=== PATIENT | female | born 1970 | race African-American/Black ===

== ENCOUNTER 2018-09-26 07:49 | Emergency (ER) | payer OTHER ==
[2018-09-26] MEDS ORDERED: IBUPROFEN 200 MG TAB PO ONE (08:33)
[2018-09-26] MEDS ORDERED: IBUPROFEN 400 MG TAB ONE (08:33)
[2018-09-26] MEDS ORDERED: NA CHLORIDE 0.9% 1,000 ML ONE (08:33)
[2018-09-26 09:11] LABS: Protime INR 1.16
[2018-09-26 09:12] LABS: Absolute Lymphocytes (CBC) 0.6 K/uL (0.7-4.9); Absolute Monocytes 0.8 K/uL (0.1-1.3); Absolute Neutrophil 4.5 K/uL (1.8-8.0); Basophils % 0.3 % (0-1.3); Eosinophils % 0.4 % (0-4.4); Hematocrit 34.6 % (36.0-45.0); Lymphocytes % 10.3 % (15.3-44.8); Monocytes % 13.7 % (3.3-12.3); RBC Red Blood Cell Count 5.25 M/uL (3.86-4.86)
[2018-09-26 09:34] LABS: ALT/SGPT 18 U/L (12-78); AST/SGOT 11 U/L (15-37); Albumin 3.8 g/dL (3.4-5.0); Alkaline Phosphatase 65 U/L (45-117); BUN Blood Urea Nitrogen 12 mg/dL (7-18); Bicarbonate 27 mmol/L (21-32); Bilirubin Direct 0.1 mg/dL (0-0.2); Bilirubin Total 0.4 mg/dL (0.2-1.0); Glucose Level 108 mg/dL (74-106); Magnesium 1.6 mg/dL (1.8-2.4); NT PRO-BNP 207 pg/mL (<125); Potassium 3.5 mmol/L (3.5-5.1); Protein, Total 7.7 g/dL (6.4-8.2); Sodium Level 141 mmol/L (136-145); Troponin (Emerg Dept Use Only) < 0.02 ng/mL (0.0-0.045)
[2018-09-26] MEDS ORDERED: MORPHINE 4 MG/ML SYR ONE (09:39)
[2018-09-26 09:49] LABS: Platelet Estimate ADEQ; Urine White Blood Cell Casts OK
[2018-09-26 09:50] LABS: Blood Morphology Comment NOTED (NOT SEEN); Hypochromasia 1+
[2018-09-26] MEDS ORDERED: MAGNESIUM OXIDE 400 MG TAB ONE (10:20)
[2018-09-26] MEDS ORDERED: CEFTRIAXONE/SWI 1gm 1 GM/10 ML SYR ONE (10:36)
--- NOTE | 2018-09-26 10:43 | RAD REPORT ---
EXAM DESCRIPTION: CT - Chest For Pe Angio - 09/26/2018 10:21 am CLINICAL HISTORY: Chest pain. Congestion;Dyspnea;Fever;Malaise COMPARISON: No comparisonsNo comparisons TECHNIQUE: CT angiogram of the pulmonary arteries was performed with MIP. All CT scans are performed using dose optimization technique as appropriate and may include automated exposure control or mA/KV adjustment according to patient size. FINDINGS: No evidence of pulmonary thromboembolism. No acute aortic finding demonstrated. The lungs are clear. No significant pericardial or pleural fluid. No concerning bony finding. IMPRESSION: No evidence of pulmonary thromboembolism. No acute lung findings.
[2018-09-26] MEDS ORDERED: LEVALBUTEROL 1.25 MG/3 ML NEB ONE (10:46)
--- NOTE | 2018-09-26 11:06 | RAD REPORT ---
EXAM DESCRIPTION: RAD - Chest Pa And Lat (2 Views) - 09/26/2018 8:30 am CLINICAL HISTORY: DYSPNEA Chest pain. COMPARISON: Chest For Pe Angio dated 09/26/2018 FINDINGS: Mild nonspecific interstitial prominence. The heart is normal in size. No displaced fractu res. IMPRESSION: Mild nonspecific interstitial prominence could indicate a pneumonitis/bronchitis.
--- NOTE | 2018-09-26 12:08 | ER ---
Nurse's Notes [facility] Name: Mini Rodriguez Age: 48 yrs Sex: Female : 1970 Arrival Date: 09/26/2018 Time: 07:53 Bed 19 Private MD: Lg Rodriguez B Diagnosis: Bronchitis, not specified as acute or chronic;Acute pharyngitis, unspecified;Shortness of breath Presentation: 09/26 08:07 Presenting complaint: Patient states: c/o fever, headache, chills, and achy since em Thursday, woke up today with SOB and cough with sputum, denies chest pain. Transition of care: patient was not received from another setting of care. Onset of symptoms was September 24, 2018. Risk Assessment: Do you want to hurt yourself or someone else? Patient reports no desire to harm self or others. Initial Sepsis Screen: Does the patient meet any 2 criteria? HR > 90 bpm. No. Patient's initial sepsis screen is negative. Does the patient have a suspected source of infection? No. Patient's initial sepsis screen is negative. Care prior to arrival: None. 08:07 Method Of Arrival: Ambulatory em 08:16 Acuity: MATT 3 iw Triage Assessment: 08:11 Headache History: Denies prior headaches. General: Appears uncomfortable, Behavior is em calm, cooperative, Reports chills for fever for. Pain: Complains of pain in forehead Pain currently is 8 out of 10 on a pain scale. Pain began 2-3 days ago. Also complains of nausea, photophobia. Neuro: Level of Consciousness is awake, alert, obeys commands, Oriented to person, place, time, situation, Moves all extremities. Gait is steady, Speech is normal, Facial symmetry appears normal, Reports headache photophobia. 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 - Social history:: Smoking status: Patient/guardian denies using tobacco. - Ebola Screening: : Patient negative for fever greater than or equal to 101.5 degrees Fahrenheit, and additional compatible Ebola Virus Disease symptoms Patient denies exposure to infectious person Patient denies travel to an Ebola-affected area in the 21 days before illness onset No symptoms or risks identified at this time. Screenin:16 Abuse screen: Denies threats or abuse. Nutritional screening: No deficits noted. em Tuberculosis screening: No symptoms or risk factors identified. Fall Risk None identified. Assessment: 08:16 General: Appears in no apparent distress. uncomfortable, Behavior is calm, cooperative, em Reports chills for fever for 2-3 days. Pain: Complains of pain in forehead. Neuro: Level of Consciousness is awake, alert, obeys commands, Oriented to person, place, time, situation, Reports headache photophobia weakness achy all over. Cardiovascular: Denies chest pain, Patient's skin is warm and dry. Rhythm is sinus rhythm. Respiratory: Reports shortness of breath at rest cough that is productive, Airway is patent Respiratory effort is even, unlabored, Respiratory pattern is regular, symmetrical, Onset: The symptoms/episode began/occurred this morning. GI: Patient currently denies nausea. Derm: Skin is intact, Skin is. Musculoskeletal: Range of motion: intact in all extremities. 08:20 Reassessment: Patient appears in no apparent distress at this time. I agree with above iw assessment by Inderjit Solorzano LVN. 09:00 Reassessment: Patient appears in no apparent distress at this time. Patient and/or em family updated on plan of care and expected duration. Pain level reassessed. Patient is alert, oriented x 3, equal unlabored respirations, skin warm/dry/pink. 10:00 Reassessment: Patient appears in no apparent distress at this time. Patient and/or em family updated on plan of care and expected duration. Pain level reassessed. Patient is alert, oriented x 3, equal unlabored respirations, skin warm/dry/pink. rates pain 5/10 Patient states feeling better. 11:08 Reassessment: Patient appears in no apparent distress at this time. Patient and/or em family updated on plan of care and expected duration. Pain level reassessed. Patient is alert, oriented x 3, equal unlabored respirations, skin warm/dry/pink. rates pain 3/10 Patient states feeling better. 12:00 Reassessment: Patient appears in no apparent distress at this time. Patient and/or em family updated on plan of care and expected duration. Pain level reassessed. Patient is alert, oriented x 3, equal unlabored respirations, skin warm/dry/pink. pending discharge, SOB has improved Patient states feeling better. Patient states symptoms have improved. Vital Signs: 08:11 BP 152 / 101; Pulse 97; Resp 22; Temp 102.6(O); Pulse Ox 97% on R/A; Weight 108.86 kg; em Height 5 ft. 3 in. (160.02 cm); Pain 8/10; 08:51 BP 142 / 108; Pulse 97; Resp 21; Pulse Ox 100% on R/A; em 09:21 BP 139 / 86; Pulse 94; Resp 20; Pulse Ox 97% ; em 09:54 BP 123 / 68; Pulse 87; Resp 20; Temp 100.3(O); Pulse Ox 99% on R/A; Pain 5/10; em 11:00 BP 110 / 69; Pulse 84; Resp 20; Pulse Ox 97% on R/A; em 12:00 BP 104 / 70; Pulse 72; Resp 18; Pulse Ox 97% on R/A; Pain 2/10; em 08:11 Body Mass Index 42.51 (108.86 kg, 160.02 cm) em ED Course: 07:53 Patient arrived in ED. mr 07:53 Lg Rodriguez MD is Private Physician. mr 07:56 [facility]qu[facility] Medina, [facility] rh1 07:56 Harsh Piedra MD is Attending Physician. rh1 07:57 Inderjit Solorzano LVN is Primary Nurse. em 08:14 Arm band placed on. em 08:15 Patient has correct armband on for positive identification. Placed in gown. Bed in low em position. Call light in reach. Side rails up X2. Adult w/ patient. quality assurance monitor body on. Pulse ox on. NIBP on. 08:16 Triage completed. iw 08:27 Chest Pa And Lat (2 Views) XRAY In Process Unspecified. EDMS 08:29 EKG done, by ED staff, reviewed by Harsh Piedra MD. mh5 08:50 Urine collected: clean catch specimen, clear, Flu and/or RSV swab sent to lab. Strep mh5 swab sent to lab. 08:51 Strep Sent. mh5 08:52 Flu Sent. mh5 10:21 CT completed. Patient tolerated procedure well. Patient moved back from CT. mw3 10:22 CT Chest For PE Angio In Process Unspecified. EDMS 12:06 Lg Rodriguez MD is Referral Physician. rh1 12:06 Victor Manuel Good MD is Referral Physician. rh1 12:06 Kasi Amaro MD is Referral Physician. rh1 12:22 No provider procedures requiring assistance completed. IV discontinued, intact, em bleeding controlled, No redness/swelling at site. Pressure dressing applied. Administered Medications: 08:40 Drug: Motrin 600 mg Route: PO; em 10:12 Follow up: Response: No adverse reaction; Temperature is decreased em 08:48 Drug: NS 0.9% 1000 ml Route: IV; Rate: 1 bolus; Site: right antecubital; em 10:41 Follow up: IV Status: Completed infusion; IV Intake: 1000ml em 09:38 Drug: morphine 4 mg Route: IVP; Site: right antecubital; iw 10:12 Follow up: Response: No adverse reaction; Pain is decreased em 10:39 Drug: Levalbuterol 1.25 mg Route: Inhalation; em 11:00 Follow up: Response: No adverse reaction; Marked relief of symptoms em 10:39 Drug: Magnesium 400 mg Route: PO; em 11:00 Follow up: Response: No adverse reaction em 10:41 Drug: Rocephin - (cefTRIAXone) 1 grams Route: IVPB; Infused Over: 30 mins; Site: right iw antecubital; 11:00 Follow up: Response: No adverse reaction; IV Status: Completed infusion; IV Intake: 10mlem Intake: 10:41 IV: 1000ml; Total: 1000ml. em 11:00 IV: 10ml; Total: 1010ml. em Outcome: 12:08 Discharge ordered by . rh1 12:22 Discharged to home ambulatory, with family. em 12:22 Condition: good 12:22 Discharge instructions given to patient, family, Instructed on discharge instructions, follow up and referral plans. medication usage, Demonstrated understanding of instructions, follow-up care, medications, Prescriptions given X 2. 12:35 Patient left the ED. em Signatures: Dispatcher [employer] [facility] Anjum Lizeth mr Inderjit Solorzano, APPLICATION ARCHITECT APPLICATION ARCHITECT em Anjelica Kamara RN RN Jacqueline Fischer NP SULPHATE TESTER 1 Sheryl Brito 5 Smitha Pozo mw3 Corrections: (The following items were deleted from the chart) : No provider procedures requiring assistance completed. em em : Patient did not have IV access during this emergency room visit. em em : Discharged to home ambulatory, with family, em em Condition: good em em Discharge instructions given to patient, family, Instructed on discharge em instructions, follow up and referral plans. no drinking with medication, no driving heavy equipment, medication usage, Demonstrated understanding of instructions, follow-up care, medications, Prescriptions given X 3, em
--- NOTE | 2018-09-26 12:09 | EDPHYS ---
Physician Documentation [facility] Name: Mini Rodriguez Age: 48 yrs Sex: Female : 1970 Arrival Date: 09/26/2018 Time: 07:53 Bed 19 Private MD: Lg Rodriguez B ED Physician Harsh Piedra HPI: 09/26 07:57 This 48 yrs old Black Female presents to ER via Ambulatory with complaints of Headache, rh1 Fever, Breathing Difficulty. 07:57 body aches, chills, CHILDS, SOB. Onset: The symptoms/episode began/occurred 2 day(s) ago. rh1 Severity of symptoms: At their worst the symptoms were moderate in the emergency department the symptoms are unchanged. The patient has not experienced similar symptoms in the past. The patient has not recently seen a physician. She began with fever/chills, body aches, sore throat with CHILDS 2 days ago. CHILDS began gradually at frontal head, described as throbbing, radiation into top/back of head, + photophobia, no neck pain/stiffness. + PND and some difficulty taking a deep breath, feeling restriction/tightness with inspiration, wheezing, productive coughing. HX of asthma as a child, has not used inhaler in many years. Denies any dysphagia, chest pain, N/V, abdominal/back pain, or swelling in legs. Reports hx of murmur, has had echo ordered by Dr. Rodriguez/PCP, that was "ok," denies cardiology evaluation.. 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 - Social history:: Smoking status: Patient/guardian denies using tobacco. - Ebola Screening: : Patient negative for fever greater than or equal to 101.5 degrees Fahrenheit, and additional compatible Ebola Virus Disease symptoms Patient denies exposure to infectious person Patient denies travel to an Ebola-affected area in the 21 days before illness onset No symptoms or risks identified at this time. ROS: 07:57 Cardiovascular: Negative for chest pain, palpitations, and edema. rh1 07:57 Constitutional: Positive for body aches, chills, fever, Negative for poor PO intake. 07:57 Eyes: Positive for photophobia. 07:57 ENT: Positive for sore throat, PND, Negative for rhinorrhea, sinus congestion. 07:57 Respiratory: Positive for cough, shortness of breath, wheezing, Negative for dyspnea on exertion, hemoptysis. 07:57 Abdomen/GI: Negative for abdominal pain, nausea, vomiting, and diarrhea. 07:57 Back: Negative for decreased range of motion, pain at rest, pain with movement, radiated pain. 07:57 : Negative for urinary symptoms, small amounts. 07:57 MS/extremity: Negative for decreased range of motion, pain, paresthesias, swelling, tenderness. 07:57 Skin: Negative for diaphoresis, rash. 07:57 Neuro: Positive for headache, Negative for altered mental status, dizziness, numbness, near syncope, tingling, visual changes, weakness. Exam: 07:57 Constitutional: This is a well developed, well nourished patient who is awake, alert, rh1 and in no acute distress. Head/Face: Normocephalic, atraumatic. 07:57 Abdomen/GI: Soft, non-tender, with normal bowel sounds. No distension. No guarding or rebound. No evidence of tenderness throughout. Back: No spinal tenderness. No costovertebral tenderness. Full range of motion. 07:57 Skin: Warm, dry with normal turgor. Normal color with no rashes, no lesions, and no evidence of cellulitis. MS/ Extremity: Pulses equal, no cyanosis. Neurovascular intact. Full, normal range of motion. 07:57 Neck: Trachea midline, and no cervical lymphadenopathy. Supple, full range of motion without nuchal rigidity. No Meningismus. Chest/axilla: Normal chest wall appearance and motion. Nontender with no deformity. No lesions are appreciated. Cardiovascular: Regular rate and rhythm with a normal S1 and S2. No gallops, or rubs. No JVD. No pulse deficits. 07:57 Head/face: Exam is negative for ecchymosis, erythema, raccoon eyes, swelling, Noted is tenderness, that is mild, of the forehead. 07:57 ENT: Nose: is normal, no drainage, no edema, Mouth: is normal, no lip abnormalities, no mucosal abnormalities, Posterior pharynx: is normal, airway is patent, no erythema, no exudate, no peritonsilar mass, no pooling of secretions, no swelling, normal tonsil apperance, normal sized tonsils, normal uvula appearance, normal uvula size, + posterior pharyngeal wall cobblestoning. 07:57 Respiratory: the patient does not display signs of respiratory distress, Respirations: normal, symetrical, no use of accessory muscles, no appreciated paradoxical movements, no prolonged exhalations, no pursed lip breathing, no retractions, no tachypnea, Breath sounds: rales, that are mild, are heard in the left posterior upper lobe, decreased breath sounds, are not appreciated, stridor, is not appreciated, wheezing: that is mild. 07:57 Back: Exam negative for CVA tenderness, ecchymosis 07:57 Neuro: Exam negative for focal neuro deficits, dysarthria, Orientation: is normal, to person, place \\T\\ time. Mentation: is normal, lucid, able to follow commands, Cranial nerves: visual lewis are intact. extraocular movements are intact, Facial palsy and sensory deficits are absent. no gross hearing deficit,. Nystagmus is absent. Speech is clear and appropriate. Gag reflex present. Tongue strength is normal, deviation is absent. Motor: is normal, moves all fours, strength is 5/5 in all extremities, Sensation: is normal, no obvious gross deficits, Gait: is steady, at a normal pace, without difficulty. 07:57 Eyes: Pupils: no acute changes, normal size, normal reaction to light, equal, right rh1 pupil is approximately 3 mm(s), left pupil is approximately 3 mm(s), Extraocular movements: intact throughout, Conjunctiva: normal. 07:57 Cardiovascular: Heart sounds: murmur, systolic, grade 3 over 6, heard in the aortic rh1 area. 07:57 Musculoskeletal/extremity: DVT Exam: No signs of deep vein thrombosis. no pain, no swelling, no tenderness, negative Homans' sign noted on exam, no appreciated bluish discoloration, no erythema, no increased warmth, Calves: are non-tender, have equal circumference. Vital Signs: 08:11 BP 152 / 101; Pulse 97; Resp 22; Temp 102.6(O); Pulse Ox 97% on R/A; Weight 108.86 kg; em Height 5 ft. 3 in. (160.02 cm); Pain 8/10; 08:51 BP 142 / 108; Pulse 97; Resp 21; Pulse Ox 100% on R/A; em 09:21 BP 139 / 86; Pulse 94; Resp 20; Pulse Ox 97% ; em 09:54 BP 123 / 68; Pulse 87; Resp 20; Temp 100.3(O); Pulse Ox 99% on R/A; Pain 5/10; em 11:00 BP 110 / 69; Pulse 84; Resp 20; Pulse Ox 97% on R/A; em 12:00 BP 104 / 70; Pulse 72; Resp 18; Pulse Ox 97% on R/A; Pain 2/10; em 08:11 Body Mass Index 42.51 (108.86 kg, 160.02 cm) em MDM: 07:57 Patient medically screened. rh1 09:38 ED course: reports SOB improved, denies chest pain at this time, CHILDS improved, reports rh1 body aches at bilateral lower extremities diffusely. 10:02 ED course: Body aches and CHILDS improved, overall SOB improved but continues. Fine rales rh1 in upper lobes, no SOB. No nuchal rigidity, no meningismus. . 10:05 Data reviewed: old medical records, Echo November 2016 with mild tricuspid regurg, tract rh1 mitral regurg, EF 57%. 12:05 Data reviewed: vital signs, nurses notes, lab test result(s), EKG, radiologic studies, rh1 CT scan, plain films, and as a result, I will discharge patient. Data interpreted: Pulse oximetry: on room air is 99 %. Interpretation: normal. Counseling: I had a detailed discussion with the patient and/or guardian regarding: the historical points, exam findings, and any diagnostic results supporting the discharge/admit diagnosis, lab results, radiology results, the need for outpatient follow up, a winding inspector, a family practitioner, to return to the emergency department if symptoms worsen or persist or if there are any questions or concerns that arise at home. Response to treatment: the patient's symptoms have markedly improved after treatment, Overall subjectively improved resp after xopenex, she has no CHILDS, no CP, no SOB at this time, feeling much better. Discussed lab results, imaging, given option of obs admission for cardiology evaluation due to elevated BNP and SOB; she would prefer to follow up with PCP/cardiology outpatient, would like to go home with family today, and as a result, I will discharge patient. Special discussion: I discussed with the patient/guardian in detail that at this point there is no indication for admission to the hospital. It is understood, however, that if the symptoms persist or worsen the patient needs to return immediately for re-evaluation. Based on the history and exam findings, there is no indication for further emergent testing or inpatient evaluation. I discussed with the patient/guardian the need to see the winding inspector for further evaluation of the symptoms. 09/26 08:07 Order name: Basic Metabolic Panel; Complete Time: 09:47 1 09/26 08:07 Order name: CBC with Diff; Complete Time: 09:53 1 09/26 08:07 Order name: LFT's; Complete Time: 09:47 1 09/26 08:07 Order name: Magnesium; Complete Time: 09:47 1 09/26 08:07 Order name: NT PRO-BNP; Complete Time: 09:47 1 09/26 08:07 Order name: PT-INR; Complete Time: 09:47 1 09/26 08:07 Order name: Troponin (emerg Dept Use Only); Complete Time: 09:47 1 09/26 08:07 Order name: Chest Pa And Lat (2 Views) XRAY; Complete Time: 11:07 1 09/26 08:07 Order name: Flu; Complete Time: 09:05 1 09/26 08:07 Order name: Strep; Complete Time: 09:05 1 09/26 08:48 Order name: Urine Dipstick--Ancillary (enter results) eb 09/26 09:07 Order name: Throat Culture EDWY 09/26 09:25 Order name: CBC Smear Scan; Complete Time: 09:53 EDWY 09/26 09:53 Order name: CT Chest For PE Angio; Complete Time: 10:50 1 09/26 08:07 Order name: EKG; Complete Time: 08:08 1 09/26 08:07 Order name: Cardiac monitoring; Complete Time: 08:30 1 09/26 08:07 Order name: EKG - Nurse/Tech; Complete Time: 08:29 09/26 08:07 Order name: IV Saline Lock; Complete Time: 08:50 rh1 09/26 08:07 Order name: Labs collected and sent; Complete Time: 08:50 rh1 09/26 08:07 Order name: O2 Per Protocol; Complete Time: 08:49 rh1 09/26 08:07 Order name: O2 Sat Monitoring; Complete Time: 08:49 rh1 09/26 08:39 Order name: Urine Dipstick-Ancillary (obtain specimen); Complete Time: 08:49 1 09/26 09:22 Order name: Vital Signs; Complete Time: 09:25 rh1 Administered Medications: 08:40 Drug: Motrin 600 mg Route: PO; em 10:12 Follow up: Response: No adverse reaction; Temperature is decreased em 08:48 Drug: NS 0.9% 1000 ml Route: IV; Rate: 1 bolus; Site: right antecubital; em 10:41 Follow up: IV Status: Completed infusion; IV Intake: 1000ml em 09:38 Drug: morphine 4 mg Route: IVP; Site: right antecubital; iw 10:12 Follow up: Response: No adverse reaction; Pain is decreased em 10:39 Drug: Levalbuterol 1.25 mg Route: Inhalation; em 11:00 Follow up: Response: No adverse reaction; Marked relief of symptoms em 10:39 Drug: Magnesium 400 mg Route: PO; em 11:00 Follow up: Response: No adverse reaction em 10:41 Drug: Rocephin - (cefTRIAXone) 1 grams Route: IVPB; Infused Over: 30 mins; Site: right iw antecubital; 11:00 Follow up: Response: No adverse reaction; IV Status: Completed infusion; IV Intake: 10mlem Disposition: 09/27 09:00 Co-signature as Attending Physician, Harsh Piedra MD I agree with the assessment and viktoria plan of care. Disposition: 09/26/18 12:08 Discharged to Home. Impression: Bronchitis, not specified as acute or chronic, Acute pharyngitis, unspecified, Shortness of breath. - Condition is Stable. - Discharge Instructions: Acute Bronchitis, Adult, How to Use an Inhaler, Pharyngitis, Shortness of Breath, Sore Throat, Upper Respiratory Infection, Adult, Cough, Adult. - Prescriptions for Augmentin 875- 125 mg Oral Tablet - take 1 tablet by ORAL route every 12 hours for 10 days; 20 tablet. Albuterol Sulfate 90 mcg/actuation - inhale 1-2 puff by INHALATION route every 4-6 hours; 1 Inhaler. - Medication Reconciliation Form, Thank You Letter, Antibiotic Education, Prescription Opioid Use form. - Follow up: Lg Rodriguez MD; When: 1 - 2 days; Reason: Recheck today's complaints, Continuance of care, Re-evaluation by your physician. Follow up: Victor Manuel Good MD; When: 1 - 2 days; Reason: Further diagnostic work-up, Recheck today's complaints, Continuance of care. Follow up: Kasi Amaro MD; When: 1 - 2 days; Reason: Further diagnostic work-up, Recheck today's complaints, Continuance of care. - Problem is new. - Symptoms have improved. Signatures: Dispatcher [employer] Harsh Sheldon MD MD cha Munoz, Edgar, EMT DISPATCHER EMT DISPATCHER em Anjelica Kamara, Jacqueline Lewis RN, NP VACUUM FORMING MACHINE OPERATOR rh1 Corrections: (The following items were deleted from the chart) 09/26 08:35 07:57 She began with fever/chills, sore throat with CHILDS 2 days ago. CHILDS began gradually rh1 at frontal head, described as throbbing, radiation into top/back of head, + photophobia. + PND and some difficulty taking a deep breath, feeling restriction with inspiration. Denies any dysphagia, no coughing, chest pain, N/V, abdominal/back pain, or swelling in legs.. rh1 08:35 07:57 Respiratory: Positive for shortness of breath, Negative for cough, dyspnea on rh1 exertion, hemoptysis, wheezing, rh1 08:36 07:57 Respiratory: Positive for shortness of breath, wheezing, Negative for cough, rh1 dyspnea on exertion, hemoptysis, rh1 09:01 07:57 Eyes: Pupils: no acute changes, normal size, normal reaction to light, equal, rh1 right pupil is approximately 3 mm(s), left pupil is approximately 3 mm(s), Extraocular movements: intact throughout, Conjunctiva: normal, rh1 09:01 07:57 Neck: Trachea midline, and no cervical lymphadenopathy. Supple, full range of rh1 motion without nuchal rigidity. No Meningismus. Chest/axilla: Normal chest wall appearance and motion. Nontender with no deformity. No lesions are appreciated. Cardiovascular: Regular rate and rhythm with a normal S1 and S2. No gallops, murmurs, or rubs. No JVD. No pulse deficits. rh1 : 07:57 Neuro: Orientation: is normal, to person, place \\T\\ time. Mentation: is normal, rh1 lucid, able to follow commands, Cranial nerves: visual lewis are intact. extraocular movements are intact, Facial palsy and sensory deficits are absent. no gross hearing deficit,. Nystagmus is absent. Speech is clear and appropriate. Gag reflex present. Tongue strength is normal, deviation is absent. Motor: is normal, moves all fours, strength is 5/5 in all extremities, Sensation: is normal, no obvious gross deficits, Gait: is steady, at a normal pace, without difficulty, rh1 : 07:57 Neck: Trachea midline, and no cervical lymphadenopathy. Supple, full range of rh1 motion without nuchal rigidity. No Meningismus. Chest/axilla: Normal chest wall appearance and motion. Nontender with no deformity. No lesions are appreciated. Cardiovascular: Regular rate and rhythm with a normal S1 and S2. No gallops, or rubs. No JVD. No pulse deficits. rh1 : 07:57 Musculoskeletal/extremity: DVT Exam: No signs of deep vein thrombosis. no pain, rh1 no swelling, no tenderness, negative Homans' sign noted on exam, no appreciated bluish discoloration, no erythema, no increased warmth, Calves: are non-tender, have equal circumference, rh1 10:04 07:57 She began with fever/chills, body aches, sore throat with CHILDS 2 days ago. CHILDS began rh1 gradually at frontal head, described as throbbing, radiation into top/back of head, + photophobia. + PND and some difficulty taking a deep breath, feeling restriction with inspiration, wheezing. HX of asthma as a child, has not used inhaler in many years. Denies any dysphagia, no coughing, chest pain, N/V, abdominal/back pain, or swelling in legs.. rh1 10:06 07:57 She began with fever/chills, body aches, sore throat with CHILDS 2 days ago. CHILDS began rh1 gradually at frontal head, described as throbbing, radiation into top/back of head, + photophobia. + PND and some difficulty taking a deep breath, feeling restriction with inspiration, wheezing. HX of asthma as a child, has not used inhaler in many years. Denies any dysphagia, no coughing, chest pain, N/V, abdominal/back pain, or swelling in legs. Reports hx of murmur, has had echo ordered by Dr. Rodriguez/PCP, that was "ok," denies cardiology evaluation.. rh1 11:02 07:57 She began with fever/chills, body aches, sore throat with CHILDS 2 days ago. CHILDS began rh1 gradually at frontal head, described as throbbing, radiation into top/back of head, + photophobia, no neck pain/stiffness. + PND and some difficulty taking a deep breath, feeling restriction/tightness with inspiration, wheezing. HX of asthma as a child, has not used inhaler in many years. Denies any dysphagia, no coughing, chest pain, N/V, abdominal/back pain, or swelling in legs. Reports hx of murmur, has had echo ordered by Dr. Rodriguez/PCP, that was "ok," denies cardiology evaluation.. rh1 11:02 07:57 Respiratory: Positive for shortness of breath, wheezing, Negative for cough, rh1 dyspnea on exertion, hemoptysis, rh1 12:12 12:05 Response to treatment: the patient's symptoms have markedly improved after rh1 treatment, improved resp after tx, no CHILDS, no CP, no SOB, and as a result, I will discharge patient, rh1 12:35 12:08 09/26/2018 12:08 Discharged to Home. Impression: Bronchitis, not specified as em acute or chronic; Acute pharyngitis, unspecified; Shortness of breath. Condition is Stable. Forms are Medication Reconciliation Form, Thank You Letter, Antibiotic Education, Prescription Opioid Use. Follow up: Lg Rodriguez; When: 1 - 2 days; Reason: Recheck today's complaints, Continuance of care, Re-evaluation by your physician. Follow up: Victor Manuel Good; When: 1 - 2 days; Reason: Further diagnostic work-up, Recheck today's complaints, Continuance of care. Follow up: Kasi Amaro; When: 1 - 2 days; Reason: Further diagnostic work-up, Recheck today's complaints, Continuance of care. Problem is new. Symptoms have improved. rh1
[2018-09-26 14:20] LABS: Urine Blood NEGATIVE (NEG); Urine Glucose NEGATIVE (NEG); Urine Protein TRACE (NEG); Urine pH 8.5 (5.0-7.0)
--- NOTE | 2018-09-27 07:25 | EKG ---
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
== END 2018-09-26 12:35 | disposition home or self-care (01) ==
LOC: ER 07:49
DX: J40 Bronchitis, not specified as acute or chronic (principal); J02.9 Acute pharyngitis, unspecified; I10 Essential (primary) hypertension; E11.9 Type 2 diabetes mellitus without complications
CPT/HCPCS: 36415; 71046; 71275; 80048; 80076; 81003; 83735; 83880; 84484; 85025; 85610; 87070; 87081; 87804; 93005; 96361; 96365; 96375; 99285; J0696; J7030; Q9967

== ENCOUNTER 2018-09-27 00:18 | Emergency (ER) | payer OTHER ==
[2018-09-27] MEDS ORDERED: KETOROLAC 30 MG/ML INJ ONE (01:59)
[2018-09-27] MEDS ORDERED: METOCLOPRAMIDE 10 MG/2mL INJ ONE (01:59)
[2018-09-27] MEDS ORDERED: DIPHENHYDRAMINE 50 MG/ML VIAL ONE (01:59)
[2018-09-27] MEDS ORDERED: NA CHLORIDE 0.9% 1,000 ML ONE (01:59)
--- NOTE | 2018-09-27 04:06 | EDPHYS ---
Physician Documentation [facility] Name: Mini Rodriguez Age: 48 yrs Sex: Female : 1970 Arrival Date: 09/27/2018 Time: 00:19 Bed 26 Private MD: Lg Rodriguez B ED Physician bJ Cabrera HPI: 09/27 03:24 This 48 yrs old Black Female presents to ER via Ambulatory with complaints of Headache, gs chills. 03:24 The patient complains of pain to the forehead and left frontal area. The patient gs describes the headache as throbbing. Onset: The symptoms/episode began/occurred gradually, 3 day(s) ago. Associated signs and symptoms: Pertinent negatives: altered mental status, rash, vomiting, weakness. Severity of symptoms: At its worst the pain was severe, in the emergency department the pain is unchanged. Headache History: Denies prior headaches. The symptoms are alleviated by nothing. the symptoms are aggravated by lights, noise. The patient has not experienced similar symptoms in the past. The patient has been recently seen at the [facility] Emergency Department, yesterday, for similar complaints. 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 - Social history:: Smoking status: Patient/guardian denies using tobacco, Patient/guardian denies using alcohol. - Ebola Screening: : No symptoms or risks identified at this time. ROS: 03:24 Constitutional: Positive for last anti pyretic 10pm yesterday. gs 03:24 All other systems are negative. Exam: 03:24 Head/Face: Normocephalic, atraumatic. Eyes: Pupils equal round and reactive to light, gs extra-ocular motions intact. Lids and lashes normal. Conjunctiva and sclera are non-icteric and not injected. Cornea within normal limits. Periorbital areas with no swelling, redness, or edema. ENT: Nares patent. No nasal discharge, no septal abnormalities noted. Tympanic membranes are normal and external auditory canals are clear. Oropharynx with no redness, swelling, or masses, exudates, or evidence of obstruction, uvula midline. Mucous membranes moist. Neck: Trachea midline, no thyromegaly or masses palpated, and no cervical lymphadenopathy. Supple, full range of motion without nuchal rigidity, or vertebral point tenderness. No Meningismus. Chest/axilla: Normal chest wall appearance and motion. Nontender with no deformity. No lesions are appreciated. Cardiovascular: Regular rate and rhythm with a normal S1 and S2. No gallops, murmurs, or rubs. Normal PMI, no JVD. No pulse deficits. Respiratory: Lungs have equal breath sounds bilaterally, clear to auscultation and percussion. No rales, rhonchi or wheezes noted. No increased work of breathing, no retractions or nasal flaring. Abdomen/GI: Soft, non-tender, with normal bowel sounds. No distension or tympany. No guarding or rebound. No evidence of tenderness throughout. Back: No spinal tenderness. No costovertebral tenderness. Full range of motion. Skin: Warm, dry with normal turgor. Normal color with no rashes, no lesions, and no evidence of cellulitis. MS/ Extremity: Pulses equal, no cyanosis. Neurovascular intact. Full, normal range of motion. Neuro: Awake and alert, GCS 15, oriented to person, place, time, and situation. Cranial nerves II-XII grossly intact. Motor strength 5/5 in all extremities. Sensory grossly intact. Cerebellar exam normal. Normal gait. 03:24 Constitutional: The patient appears alert, awake, uncomfortable. Vital Signs: 00:28 BP 128 / 76; Pulse 81; Resp 16 S; Temp 98.8(O); Pulse Ox 98% on R/A; Weight 108.41 kg bb (R); Height 5 ft. 3 in. (160.02 cm) (R); Pain 9/10; 01:30 BP 122 / 77; Pulse 78; Resp 18; Pulse Ox 100% on R/A; Pain 5/10; mg2 03:55 BP 141 / 80; Pulse 65; Resp 16 S; Temp 99.7(O); Pulse Ox 100% on R/A; Pain 4/10; bb 00:28 Body Mass Index 42.34 (108.41 kg, 160.02 cm) kendall MDM: 01:34 Patient medically screened. 03:24 Differential diagnosis: meningitis, migraine, tension headache, vasomotor headache. Data reviewed: vital signs, nurses notes. Response to treatment: the patient's symptoms have markedly improved after treatment. 04:02 ED course: headache better, discussed LP risks and benefits, unlikely for bacterial gs meningitis as same headache from 3 days no fever or wbc count yesterday normal mentation no meningeal signs, viral meningitis still possible, pt doesn't want LP wants d/c and will followup will return if worse. 09/27 01:38 Order name: CT Head Brain wo Cont gs Administered Medications: 02:06 Drug: TORadol 30 mg Route: IVP; Site: right hand; mg2 03:18 Follow up: Response: No adverse reaction; Marked relief of symptoms mg2 02:07 Drug: NS 0.9% 1000 ml Route: IV; Rate: 1 bolus; Site: right hand; mg2 03:00 Follow up: IV Status: Completed infusion; IV Intake: 1000ml bb 03:18 Follow up: Response: No adverse reaction; IV Status: Completed infusion mg2 02:07 Drug: Reglan 10 mg Route: IVP; Site: right hand; mg2 03:18 Follow up: Response: No adverse reaction; Marked relief of symptoms mg2 02:07 Drug: Benadryl 25 mg Route: IVP; Site: right hand; mg2 03:18 Follow up: Response: No adverse reaction; Marked relief of symptoms mg2 Disposition: 09/27/18 04:05 Discharged to Home. Impression: Fever, unspecified, Headache. - Condition is Stable. - Discharge Instructions: General Headache Without Cause. - Medication Reconciliation Form, Thank You Letter, Antibiotic Education, Prescription Opioid Use form. - Follow up: Private Physician; When: 1 - 2 days; Reason: Re-evaluation by your physician. Signatures: Dispatcher [employer] EDME Autumn Dumont RN RN Jb Rodriguez MD MD gs Gardose, Michele, RN RN mg2 Corrections: (The following items were deleted from the chart) 04:15 04:05 09/27/2018 04:05 Discharged to Home. Impression: Fever, unspecified; Headache. bb Condition is Stable. Forms are Medication Reconciliation Form, Thank You Letter, Antibiotic Education, Prescription Opioid Use. Follow up: Private Physician; When: 1 - 2 days; Reason: Re-evaluation by your physician. gs
--- NOTE | 2018-09-27 04:06 | ER ---
Nurse's Notes [facility] Name: Mini Rodriguez Age: 48 yrs Sex: Female : 1970 Arrival Date: 09/27/2018 Time: 00:19 Bed 26 Private MD: Lg Rodriguez B Diagnosis: Fever, unspecified;Headache Presentation: 09/27 00:26 Presenting complaint: Patient states: she was here this morning and dx with bronchitis bb and pharyngitis and sent home with an inhaler and antibiotics which she started but was told to come back if her headache returned pt states she is still having a headache with chills. Transition of care: patient was not received from another setting of care. Onset of symptoms was September 27, 2018. Risk Assessment: Do you want to hurt yourself or someone else? Patient reports no desire to harm self or others. Initial Sepsis Screen: Does the patient meet any 2 criteria? No. Patient's initial sepsis screen is negative. Does the patient have a suspected source of infection? No. Patient's initial sepsis screen is negative. Care prior to arrival: None. 00:26 Method Of Arrival: Ambulatory bb 00:26 Acuity: MATT 3 bb Triage Assessment: 00:28 Headache History: Denies prior headaches. bb 00:47 Pain: Also complains of no other associated symptoms. 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 - Social history:: Smoking status: Patient/guardian denies using tobacco, Patient/guardian denies using alcohol. - Ebola Screening: : No symptoms or risks identified at this time. Screenin:38 Abuse screen: Denies threats or abuse. Denies injuries from another. Nutritional mg2 screening: No deficits noted. Tuberculosis screening: No symptoms or risk factors identified. Fall Risk None identified. Assessment: 00:45 General: Appears in no apparent distress. comfortable, Behavior is calm, cooperative. mg2 Pain: Complains of pain in head Pain does not radiate. Pain currently is 9 out of 10 on a pain scale. Quality of pain is described as aching, Pain began gradually, Is intermittent. Neuro: Level of Consciousness is awake, alert, obeys commands, Oriented to person, place, time, situation, Reports headache. Cardiovascular: Capillary refill < 3 seconds Patient's skin is warm and dry. Respiratory: Airway is patent Respiratory effort is even, unlabored, Respiratory pattern is regular, symmetrical. Respiratory: Reports cough that is congestion. GI: No signs and/or symptoms were reported involving the gastrointestinal system. : No deficits noted. EENT: No signs and/or symptoms were reported regarding the EENT system. Derm: Skin is intact, is healthy with good turgor, Skin is pink, warm \T\ dry. normal. Musculoskeletal: No signs and/or symptoms reported regarding the musculoskeletal system. 02:53 Reassessment: patient sleeping on bed. mg2 03:54 Reassessment: Patient and/or family updated on plan of care and expected duration. Pain bb level reassessed. Patient is alert, oriented x 3, equal unlabored respirations, skin warm/dry/pink. pt states headache has improved now 4/10, IV site intact, patent, with fluids infusing, family at bedside Patient states symptoms have improved. 04:13 Reassessment: Patient is alert, oriented x 3, equal unlabored respirations, skin bb warm/dry/pink. pt verbalized understanding of and agrees to plan of care discharge instructions given pt ambulated with steady gait to exit accompanied by family. Vital Signs: 00:28 BP 128 / 76; Pulse 81; Resp 16 S; Temp 98.8(O); Pulse Ox 98% on R/A; Weight 108.41 kg bb (R); Height 5 ft. 3 in. (160.02 cm) (R); Pain 9/10; 01:30 BP 122 / 77; Pulse 78; Resp 18; Pulse Ox 100% on R/A; Pain 5/10; mg2 03:55 BP 141 / 80; Pulse 65; Resp 16 S; Temp 99.7(O); Pulse Ox 100% on R/A; Pain 4/10; bb 00:28 Body Mass Index 42.34 (108.41 kg, 160.02 cm) ED Course: 00:19 Patient arrived in ED. am2 00:19 Lg Rodriguez MD is Private Physician. am2 00:27 Triage completed. bb 00:28 Arm band placed on Patient placed in an exam room, on a stretcher, on pulse oximetry. bb Family accompanied patient. 00:38 Pastor Vivas RN is Primary Nurse. mg2 00:39 Patient has correct armband on for positive identification. mg2 00:39 No provider procedures requiring assistance completed. mg2 00:46 Inserted saline lock: 22 gauge in right hand, using aseptic technique. mg2 01:25 Jb Cabrera MD is Attending Physician. gs 01:[address] via wheelchair. kw1 01:54 CT completed. Patient tolerated procedure well. Patient moved back from CT. kw1 02:04 CT Head Brain wo Cont In Process Unspecified. EDMS 04:15 IV discontinued, intact, bleeding controlled, No redness/swelling at site. Pressure bb dressing applied. Administered Medications: 02:06 Drug: TORadol 30 mg Route: IVP; Site: right hand; mg2 03:18 Follow up: Response: No adverse reaction; Marked relief of symptoms mg2 02:07 Drug: NS 0.9% 1000 ml Route: IV; Rate: 1 bolus; Site: right hand; mg2 03:00 Follow up: IV Status: Completed infusion; IV Intake: 1000ml bb 03:18 Follow up: Response: No adverse reaction; IV Status: Completed infusion mg2 02:07 Drug: Reglan 10 mg Route: IVP; Site: right hand; mg2 03:18 Follow up: Response: No adverse reaction; Marked relief of symptoms mg2 02:07 Drug: Benadryl 25 mg Route: IVP; Site: right hand; mg2 03:18 Follow up: Response: No adverse reaction; Marked relief of symptoms mg2 Intake: 03:00 IV: 1000ml; Total: 1000ml. bb Outcome: 04:05 Discharge ordered by . 04:15 Discharged to home ambulatory, with family. bb 04:15 Condition: stable 04:15 Discharge instructions given to patient, Instructed on discharge instructions, follow up and referral plans. Demonstrated understanding of instructions, follow-up care. 04:15 Patient left the ED. bb Signatures: Dispatcher [employer] EDMS Autumn Dumont RN RN bb Emily Torres am2 Jb Cabrera MD MD Emma Terry kw1 Pastor Vivas, RN RN mg2
--- NOTE | 2018-09-27 13:54 | RAD REPORT ---
EXAM DESCRIPTION: CT Head Without Intravenous Contrast. CLINICAL HISTORY: The patient is 48 years old and is Female; HEADACHE. COMPARISON: No relevant prior studies available. TECHNIQUE: Axial computed tomography images of the head/brain without intravenous contrast. Sagittal and coronal reformatted images were created and reviewed. This CT exam was performed using one or more of the fo llowing dose reduction techniques: Automated exposure control, adjustment of the mA and/or kV accordi ng to patient size, and/or use of iterative reconstruction technique. FINDINGS: Brain: Unremarkable. The reza-white matter differentiation is preserved. No hemorrhage. No significant white matter disease. No edema. No extra-axial fluid collections. Ventricles: Unremarkable. No ventriculomegaly. Bones/joints: No acute fracture. Soft tissues: Unremarkable. Sinuses: Unremarkable as visualized. No acute sinusitis. Mastoid air cells: Unremarkable as visualized. No mastoid effusion. IMPRESSION: No acute intracranial findings. 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 The interpreting radiologist is f ully responsible for the content of the report.
== END 2018-09-27 04:15 | disposition home or self-care (01) ==
LOC: ER 00:18
DX: R50.9 Fever, unspecified (principal); R51 Headache; E11.9 Type 2 diabetes mellitus without complications; I10 Essential (primary) hypertension; Z79.899 Other long term (current) drug therapy
CPT/HCPCS: 70450; 96361; 96374; 96375; 99284; J2765; J7030

== ENCOUNTER 2020-06-25 07:26 | Day surgery (SDC) | payer OTHER ==
--- NOTE | 2020-06-22 14:55 | RAD REPORT ---
EXAM DESCRIPTION: Delicia Peterson (2 Views)06/22/2020 2:48 pm CLINICAL HISTORY: Preop for knee L surgery/hypertension COMPARISON: 2019 FINDINGS: The lungs appear clear of acute infiltrate. The heart is borderline enlarged IMPRESSION: No acute abnormalities displayed
[2020-06-22 14:59] LABS: Potassium 4.1 mmol/L (3.5-5.1)
[2020-06-22 15:06] LABS: Absolute Lymphocytes (CBC) 3.7 K/uL (0.7-4.9); Basophils % 1.3 % (0-1.3); Hematocrit 36.8 % (36.0-45.0); Lymphocytes % 40.4 % (15.3-44.8); MPV 8.4 fL (7.6-11.3); RBC Red Blood Cell Count 5.67 M/uL (3.86-4.86)
[2020-06-22 15:50] LABS: Blood Morphology Comment NOTED (NOT SEEN); Hypochromasia 1+; Platelet Estimate ADEQ; White Blood Cell Scan OK (OK)
[2020-06-25] MEDS ORDERED: CEFAZOLIN/SWI 1gm 0 GM/0 ML SYR ONE (08:22)
[2020-06-25] MEDS ORDERED: NA CHLORIDE 0.9% 1,000 ML ONE (08:22)
[2020-06-25] MEDS ORDERED: propofoL 200 MG/20 ML VIAL IV ONE ×2 (08:27→08:57)
[2020-06-25] MEDS ORDERED: MIDAZOLAM HCL 2 MG/2 ML INJ ONE (08:27)
[2020-06-25] MEDS ORDERED: FENTANYL CITR 100 MCG/2 ML ONE (08:27)
[2020-06-25] MEDS ORDERED: ONDANSETRON 4 MG/2 ML VIAL ONE (08:28)
[2020-06-25] MEDS ORDERED: KETOROLAC 30 MG/ML INJ ONE (08:28)
[2020-06-25] MEDS ORDERED: LIDOCAINE 2% MPF 5 ML VIAL ONE (08:28)
[2020-06-25] MEDS ORDERED: CIPROFLOXACIN 400mg IV 400 MG/200 ML BAG IV ONE (08:37)
--- NOTE | 2020-06-25 08:56 | P.BOP ---
Preoperative diagnosis: right first toe cellulitis, abscess, ingrown nail, non healing wound Postoperative diagnosis: same Primary procedure: incision, debridement R first toe abscess with partial nail removal Estimated blood loss: <5cc Specimen: nail, culture Findings: as above Anesthesia: digital block Complications: None Transferred to: Recovery Room Condition: Good
--- NOTE | 2020-06-25 10:15 | OP ---
Date of Procedure: 06/25/2020 Surgeon: aDndy Brito MD Preoperative Diagnoses: Right first toe cellulitis, abscess, nonhealing wound, and ingrown nail. Postoperative Diagnoses: Right first toe cellulitis, abscess, nonhealing wound, and ingrown nail. Procedure: Incision and subcu debridement of the right first toe abscess with partial nail removal. Estimated Blood Loss: Less than 5 cc. Specimen: Nail and culture. Findings: The patient has an ingrown nail with an abscess nonhealing wound with devitalized tissue t hat was debrided and the abscess was drained. Anesthesia: Digital block plus MAC anesthesia. Indications: This is a case of a 50-year-old patient comes to us with the above findings. Benefits, alternatives, and risks of the above proposed procedure was fully explained which include, but not li mited to infection, bleeding, damage to adjacent structures, anesthesia complication, nonhealing woun d, DE, and even . She also understands this may not relieve the symptoms. She might need more than one surgical intervention. She understand the nail might grow around or deformed and she may de velop a nonhealing wound. She understands the importance of controlling her glucose. She has she sa ys an ideal experience on the opposite toe long time ago. She told me she had the nail removed all t he way back and it grew in a worse way than before as per her judgment and getting pain and discomfor t, so she asked me if I trying to do a partial nail removal instead of full removal. Pros and cons o f that were discussed with the patient. As long as we see that it works, we may do so if we see that the partial nail removal just give trouble in the future. She might have to have a full nail remove d trying to comply which is the best I can, at the same time I need to drain this abscess. She gave me consent. The patient was brought to the operating room, placed in supine position. Anesthesia wa s done without complication. Right foot was prepped and draped in a usual sterile fashion. Digital was done. After that, I made an incision on the abscess, drained the abscess, part of the nail that have to be removed since this is going through the skin that nail was removed partially. Abscess was done. We had devitalized tissue that was debrided subcutaneously then the pus was cultured. Area w as irrigated. Hemostasis was obtained. Local anesthesia was placed over the area again. The patien t tolerated the procedure well. Area was covered with sterile dressings. The patient was sent to [facility] in stable condition. SOREN/CELI Voice ID: [id number] Report ID: [id number]
--- NOTE | 2020-06-25 10:15 | OP ---
Date of Procedure: 06/25/2020 Surgeon: Dandy Brito MD Diagnoses: Right first toe cellulitis, abscess, ingrown nail, nonhealing wound. Procedure: Incision and subcu debridement of right first toe abscess with partial nail removal. Disposition: Home. Activity: As tolerated, no heavy lifting. Plan: Follow up in my office in 1 week. She was advised to use Bactroban there daily or twice if da y possible. May clean the area with running water, clean and soap. SOREN/CELI Voice ID: [id number] Report ID: [id number]
[2020-06-25 10:20] VITALS: TEMP 98
[2020-06-25 10:21] VITALS: BP 119/79; O2SAT 97
== END 2020-06-25 09:40 | disposition home or self-care (01) ==
LOC: OR 07:26
PROVIDERS: ATTEND Surgery
PROC: 0HBRXZZ Excision of Toe Nail, External Approach (ICD-10-PCS; 2020-06-25)
PROC: 0JBQ0ZZ Excision of Right Foot Subcutaneous Tissue and Fascia, Open Approach (ICD-10-PCS; principal; 2020-06-25 08:30)
DX: L02.611 Cutaneous abscess of right foot (principal); L60.0 Ingrowing nail; I10 Essential (primary) hypertension; E11.9 Type 2 diabetes mellitus without complications; E78.00 Pure hypercholesterolemia, unspecified; Z20.828 Contact with and (suspected) exposure to other viral communicable diseases
CPT/HCPCS: 36415; 71046; 80048; 85025; 87070; 87075; 87205; 88304; 88305; 88311; 88312; 93005; J0690; J0744; J2250; J2405; J2704; J3010; J7030; U0002